=== PATIENT | female | born 1995 | race Caucasian/White ===

== ENCOUNTER 2017-11-21 16:18 | Inpatient (IN) | payer OTHER ==
[2017-11-21] MEDS ORDERED: Ringers Lactate 1,000 ML IV PRN (16:19)
[2017-11-21] MEDS ORDERED: BUTORPHANOL 1 MG/ML INJ IV PRN (16:19)
[2017-11-21] MEDS ORDERED: PROMETHAZINE 25 MG/ML VIAL IM PRN (16:19)
[2017-11-21] MEDS ORDERED: miSOPROStol 100 MCG TAB ONE (16:32)
[2017-11-21 16:46] LABS: RPR Titer ND
[2017-11-21 16:50] LABS: Urine Appearance CLEAR; Urine Bilirubin NEGATIVE (NEG); Urine Blood NEGATIVE (NEG); Urine Color YELLOW; Urine Glucose NEGATIVE (NEG); Urine Protein NEGATIVE (NEG); Urine Specific Gravity 1.025 (1.005-1.030)
[2017-11-21 16:52] LABS: Urine Microscopic Reflex ORDER UMIC
[2017-11-21 16:54] LABS: Absolute Lymphocytes (CBC) 1.3 K/uL (0.7-4.9); Absolute Monocytes 0.7 K/uL (0.1-1.3); Absolute Neutrophil 5.8 K/uL (1.8-8.0); Basophils % 0.3 % (0-1.3); Eosinophils % 0.4 % (0-4.4); Hematocrit 35.4 % (36.0-45.0); Lymphocytes % 17.1 % (15.3-44.8); MCH 30.3 pg (27.0-35.0); MCV 88.6 fL (80-100); MPV 10.5 fL (7.6-11.3); Monocytes % 9.1 % (3.3-12.3); RBC Red Blood Cell Count 3.99 M/uL (3.86-4.86)
[2017-11-21] MEDS ORDERED: Ringers Lactate 1,000 ML IV SCH (17:00)
[2017-11-21] MEDS ORDERED: miSOPROStol 100 MCG TAB PO ONE (17:00)
[2017-11-21 17:18] VITALS: BMI 40.3
[2017-11-21 17:18] LABS: Urine Bacteria 20-50 /HPF (<20); Urine Culture Reflex Order REFLEXED; Urine RBC <5 /HPF (NONE SEEN)
--- NOTE | 2017-11-21 21:16 | PREOPHP ---
Date of Admission: 11/21/2017 A 22-year-old primigravida, 39 weeks 5 days for Cytotec induction. This has been thoroughly discusse d with the patient and her family on several occasions. She knows because she has an unfavorable cer vix that the chance for section is higher, but she does not wish to wait until next week, an d then when she would be passed 40 weeks, use Cytotec at that point. FHTs normal, reactive. Vital s igns are stable. We will insert 50 mcg of Cytotec intravaginally and then switch to p.o. administrat ion every 6 hours, how many doses to be used depends upon the response. The patient knows we can go up to 6 doses if we need to, that would be 36 hours of Cytotec. We will make a more informed decisio n after we see how she responds to the first couple of doses. Full admission and labor talk given. DAVID/KATHERIN Voice ID: [id number]
[2017-11-21] MEDS ORDERED: ZOLPIDEM TARTRATE 5 MG TABLET PO PRN (21:58)
[2017-11-22] MEDS ORDERED: ROPIVACAINE HCL 100 ML IV PRN (04:09)
--- NOTE | 2017-11-22 04:11 | PN ---
Baby looks good on the monitor. She is cristina every 3-4 minutes. There has been no more signif icant bleeding. Baby is well applied to the cervix. I do not think we are dealing with an abruption it looks like a bloody show that has now basically stopped and patient is getting to more active lab or pattern. DAVID/KATHERIN Voice ID: [id number] Report ID: [id number]
[2017-11-22] MEDS ORDERED: ROPIVACAINE HCL 0.2% 20ML AMP IV ONE (04:21)
[2017-11-22] MEDS ORDERED: FENTANYL CITR 100 MCG/2 ML IV ONE (05:04)
[2017-11-22] MEDS ORDERED: FENTANYL CITR 100 MCG/2 ML ONE (05:11)
[2017-11-22] MEDS ORDERED: OXYTOCIN/LR 20 UNIT/1,000 ML BAG IV SCH ×2 (07:00→12:00)
[2017-11-22] MEDS ORDERED: METHYLERGONOVINE 0.2MG/ML AMP IM ONE (11:12)
[2017-11-22] MEDS ORDERED: CARBOPROST TROME 250 MCG/ML IM ONE (11:12)
[2017-11-22] MEDS ORDERED: LIDOCAINE 2% INJ, 20 mL 20 ML ONE (11:30)
--- NOTE | 2017-11-22 11:41 | PN ---
The patient has now progressed to about 5 to 5.5 cm. She has a slight amount of edema on the anterio r cervical lip. I think the baby is occiput posterior. She will start doing pelvic rocks. She has had her epidural and is quite comfortable at this time. The Pitocin 2 milliunits has been started. Hopefully, we will get more rapid progress from this point forward. DAVID/KATHERIN Voice ID: [id number] Report ID: [id number]
[2017-11-22] MEDS ORDERED: CARBOPROST TROME 250 MCG/ML IM PRN (11:54)
[2017-11-22] MEDS ORDERED: BISACODYL 10 MG RECTAL SUPP RECT PRN (11:54)
[2017-11-22] MEDS ORDERED: Oxycodone HCl/Acetaminophen 1 TAB TAB PO PRN (11:54)
[2017-11-22] MEDS ORDERED: DIPHENHYDRAMINE 25 MG TAB/CAP PO PRN (11:54)
[2017-11-22] MEDS ORDERED: ACETAMINOPHEN 500 MG TAB PO PRN (11:54)
[2017-11-22] MEDS ORDERED: DOCUSATE NA/SENNA CONC 1 TAB PO PRN (11:54)
[2017-11-22] MEDS: IBUPROFEN 200 MG TAB PO PRN (13:00)
[2017-11-22] MEDS ORDERED: ACETAMINOPHEN 325 MG TABLET ONE (16:23)
[2017-11-22] MEDS: Oxycodone HCl/Acetaminophen 1 TAB TAB PO PRN (17:00)
[2017-11-22 22:24] LABS: RPR (Rapid Plasma Reagin) NON-REACT (NON-REACT)
--- NOTE | 2017-11-22 23:23 | OP ---
Hospital Course: A 22-year-old, primigravida, 39 weeks and 5 days when Cytotec administered, and 39 weeks and 6 days at the time of delivery. The patient had a bloody show last night. Noted to be 2-2 .5 cm. Rupture of membranes, clear fluid. No suspicion of abruption. The patient progressed well, at 4.5 cm, had epidural anesthesia. Second stage of approximately 25 minutes, spontaneous vaginal de livery. Mild shoulder dystocia. Flexion of the legs. Minimal suprapubic pressure applied. An nancy mated 8-pound female, Apgars 9 and 9. Midline second-degree laceration repaired with 2-0 chromic. O ne vertical laceration just below the clitoris, 1 qaeptu-px-huisk stitch, 2-0 chromic. Fadi ovalle of the placenta, which was inspected and noted to be intact and normal. Mild uterine hypertonus . Hemabate given IM. Estimated blood loss 450, possibly 500 cc. The patient tolerated all procedur es well. Final Diagnoses: Intrauterine gestation, 39 weeks and 5 days with Cytotec cervical ripening, vaginal delivery at 39 weeks and 6 days, epidural anesthesia, and mild uterine hypotonus. DAVID/KATHERIN Voice ID: [id number] Report ID: [id number]
[2017-11-23] MEDS: Oxycodone HCl/Acetaminophen 1 TAB TAB PO PRN (01:56)
[2017-11-23] MEDS ORDERED: MEASLES,MUMPS,RUBELLA VAC 0.5ML SQVAC ONE (08:24)
[2017-11-23] MEDS ORDERED: Tdap (Diph,Pertuss(Acell),Tet Vac) 0.5 ML SYR IMVAC ONE (08:24)
[2017-11-23] MEDS: IBUPROFEN 200 MG TAB PO PRN (09:25)
--- NOTE | 2017-11-23 12:20 | DS ---
Hospital Course: A 22-year-old, primigravida, 39 weeks 6 days at the time of delivery. Cytotec give n for cervical ripening followed by labor induction with oxytocin, subsequently delivering an estimat ed 8 pounds female. Apgars 9 and 9. Midline second-degree laceration simulating episiotomy and repa ired with 2-0 chromic plus a first-degree laceration just below the clitoris, 1 ptmdxn-mk-csraa stitc h 2-0 chromic. Schultze delivery of the placenta, which was inspected and noted to be intact and nor mal. Mild uterine hypertonus Hemabate IM 1 time. Estimated blood loss 450-500 cc. Rh positive, imm une to Rubella. Negative beta-strep screen. afebrile, ambulating and voiding. Lochia is normal. No post epidural problems. Will be dismissed later today to report back to my office in 6 weeks for followup, to report any temperature elevation of 100 degrees or greater, severe pain, heavy bleeding, or any other type of abnormalities. Dismissed with tramadol for analgesia, although she m ay elect to take Motrin instead. She has not had her Tdap immunization during the , and aga in offered a Tdap. Final Diagnoses: Intrauterine gestation, 39 weeks 6 days at delivery. Cytotec for cervical ripening . Labor induction. Vaginal delivery. Mild uterine hypotonus. Epidural anesthesia. Tdap offered. DAVID/KATHERIN Voice ID: [id number] Report ID: [id number]
[2017-11-23 12:25] VITALS: BP 112/55; TEMP 98.2
[2017-11-25 20:59] LABS: HBsAG Nonreactive (Nonreactive)
== END 2017-11-23 14:30 | disposition home or self-care (01) | DRG 775 ==
LOC: 2ND-WC 16:18
PROVIDERS: ADMIT Specialist; ATTEND Specialist
PROC: 10907ZC Drainage of Amniotic Fluid, Therapeutic from Products of Conception, Via Natural or Artificial Opening (ICD-10-PCS; principal; 2017-11-21)
PROC: 3E0P7VZ Introduction of Hormone into Female Reproductive, Via Natural or Artificial Opening (ICD-10-PCS; 2017-11-21)
PROC: 10E0XZZ Delivery of Products of Conception, External Approach (ICD-10-PCS; 2017-11-22)
PROC: 0KQM0ZZ Repair Perineum Muscle, Open Approach (ICD-10-PCS; 2017-11-22)
PROC: 3E033VJ Introduction of Other Hormone into Peripheral Vein, Percutaneous Approach (ICD-10-PCS; 2017-11-22)
DX: O70.1 Second degree perineal laceration during delivery (principal); Z37.0 Single live birth; O62.2 Other uterine inertia; O66.0 Obstructed labor due to shoulder dystocia; Z3A.39 39 weeks gestation of pregnancy; Z23 Encounter for immunization
CPT/HCPCS: 36415; 81003; 81015; 85025; 86592; 86901; 87086; 87088; 87340; 90707; 90715; J0595; J2210; J2550; J2590; J2795; J3010

== ENCOUNTER 2019-02-12 03:19 | Emergency (ER) | payer BC, OTHER ==
--- OUTSIDE RECORDS SUMMARY | 2019-02-12 03:22 | XMS REPORT ---
:1995 [facility] [address] [place] [address] [address] [place] [address] Care Team Providers Name Role Phone Unavailable Unavailable Unavailable Problems This patient has no known problems. Allergies, Adverse Reactions, Alerts This patient has no known allergies or adverse reactions. Medications This patient has no known medications.
--- NOTE | 2019-02-12 04:01 | ER ---
Nurse's Notes [facility] Name: Yadi Alex Age: 24 yrs Sex: Female : 1995 Arrival Date: 02/12/2019 Time: 03:20 Bed 7 Private MD: Diagnosis: Laceration without foreign body of unspecified finger without damage to nail Presentation: 02/12 03:30 Presenting complaint: Patient states: States she was cutting fabric with a fabric ea cutter and accidently rolled over her right pointer finger. Transition of care: patient was not received from another setting of care. Onset of symptoms was February 12, 2019. Risk Assessment: Do you want to hurt yourself or someone else? Patient reports no desire to harm self or others. Initial Sepsis Screen: Does the patient meet any 2 criteria? No. Patient's initial sepsis screen is negative. Does the patient have a suspected source of infection? No. Patient's initial sepsis screen is negative. Care prior to arrival: pt held pressure to stop the bleeding. 03:30 Method Of Arrival: Ambulatory ea 03:30 Acuity: MAYNOR 4 ea Historical: - Allergies: 03:56 NKDA; ea - Home Meds: 03:56 None [Active]; ea - PMHx: 03:56 None; ea - PSHx: 03:56 None; ea - Immunization history:: Adult Immunizations up to date. - Social history:: Smoking status: Patient/guardian denies using tobacco. - Ebola Screening: : No symptoms or risks identified at this time. Screenin:30 Abuse screen: Denies threats or abuse. Nutritional screening: No deficits noted. ea Tuberculosis screening: No symptoms or risk factors identified. Fall Risk None identified. Assessment: 03:30 General: Appears in no apparent distress. Behavior is calm, cooperative, appropriate ea for age. Pain: Complains of pain in palmar aspect of distal phalanx of right index finger Pain currently is 5 out of 10 on a pain scale. Neuro: Level of Consciousness is awake, alert, obeys commands, Oriented to person, place, time, situation. Cardiovascular: Patient's skin is warm and dry. Respiratory: Airway is patent Respiratory effort is even, unlabored, Respiratory pattern is regular, symmetrical. Derm: Skin is pink, warm \T\ dry. Injury Description: Laceration sustained to palmar aspect of distal phalanx of right index finger is clean, superficial, 0.5 to 2.5 cm long, not bleeding, was sustained 1-2 hours ago. no active bleeding noted at this time. A dressing was applied. 03:38 Reassessment: Patient and/or family updated on plan of care and expected duration. Pain ea level reassessed. Patient is alert, oriented x 3, equal unlabored respirations, skin warm/dry/pink. right pointer finger lac cleansed, steri strips placed over area, pt tolerated well. 04:04 Reassessment: Patient and/or family updated on plan of care and expected duration. Pain ea level reassessed. Patient is alert, oriented x 3, equal unlabored respirations, skin warm/dry/pink. Discharge instruction given to patient, verbalized the understanding of instruction, pt left ED ambulatory accompanied by family. Vital Signs: 03:30 BP 129 / 57; Pulse 78; Resp 18; Temp 97.6; Pulse Ox 100% ; Weight 86.18 kg; Height 5 ea ft. 8 in. (172.72 cm); Pain 7/10; 03:30 Body Mass Index 28.89 (86.18 kg, 172.72 cm) ea ED Course: 03:20 Patient arrived in ED. cl3 03:23 Ruperto Mckinney MD is Attending Physician. tw4 03:30 Arm band placed on right wrist. Patient placed in an exam room, on a stretcher, on ea pulse oximetry. 03:30 Patient has correct armband on for positive identification. Bed in low position. Call ea light in reach. 03:55 Triage completed. ea 03:59 No provider procedures requiring assistance completed. Patient did not have IV access ea during this emergency room visit. 04:04 Judy Hunter RN is Primary Nurse. ea Administered Medications: No medications were administered Outcome: 04:01 Discharge ordered by . tw4 04:04 Discharged to home ambulatory. ea 04:04 Condition: stable 04:04 Discharge instructions given to patient. 04:05 Patient left the ED. ea Signatures: Judy Hunter RN RN ea Wadley, Terrence, MD MD tw4 Tuan Hull cl3
--- NOTE | 2019-02-12 04:02 | EDPHYS ---
Physician Documentation [facility] Name: Yadi Alex Age: 24 yrs Sex: Female : 1995 Arrival Date: 02/12/2019 Time: 03:20 Bed 7 Private MD: ED Physician Ruperto Mckinney HPI: 02/12 06:56 This 24 yrs old Female presents to ER via Ambulatory with complaints of tw4 Laceration To Finger. 06:56 The patient or guardian reports a laceration, clean, 3 cm(s). The complaints affect the tw4 palmar aspect of distal phalanx of right index finger. Context: The problem was sustained at home, resulted from cut with knife. Onset: The symptoms/episode began/occurred today. Modifying factors: The symptoms are alleviated by nothing, the symptoms are aggravated by nothing. Severity of symptoms: At their worst the symptoms were mild, in the emergency department the symptoms are unchanged. The patient has not experienced similar symptoms in the past. Historical: - Allergies: 03:56 NKDA; ea - Home Meds: 03:56 None [Active]; ea - PMHx: 03:56 None; ea - PSHx: 03:56 None; ea - Immunization history:: Adult Immunizations up to date. - Social history:: Smoking status: Patient/guardian denies using tobacco. - Ebola Screening: : No symptoms or risks identified at this time. ROS: 06:56 Constitutional: Negative for fever, chills, and weight loss, Eyes: Negative for injury, tw4 pain, redness, and discharge, ENT: Negative for injury, pain, and discharge, Cardiovascular: Negative for chest pain, palpitations, and edema, Respiratory: Negative for shortness of breath, cough, wheezing, and pleuritic chest pain, Abdomen/GI: Negative for abdominal pain, nausea, vomiting, diarrhea, and constipation. 06:56 MS/extremity: Positive for injury or acute deformity, laceration, Negative for abrasion, bite, contusion, decreased range of motion, deformity. Exam: 06:56 Constitutional: This is a well developed, well nourished patient who is awake, alert, tw4 and in no acute distress. Head/Face: Normocephalic, atraumatic. 06:56 Musculoskeletal/extremity: Extremities: noted in the palmar aspect of distal phalanx of right index finger: laceration. Vital Signs: 03:30 BP 129 / 57; Pulse 78; Resp 18; Temp 97.6; Pulse Ox 100% ; Weight 86.18 kg; Height 5 ea ft. 8 in. (172.72 cm); Pain 7/10; 03:30 Body Mass Index 28.89 (86.18 kg, 172.72 cm) ea Laceration: 06:59 Wound Repair of 2cm ( 0.8in ) subcutaneous laceration to palmar aspect of distal tw4 phalanx of right index finger. Linear shaped.. Distal neuro/vascular/tendon intact. Skin closed with 1-0 steri stripes using simple sutures and sterile technique. Dressed with bandaid. Patient tolerated well. MDM: 03:36 Patient medically screened. tw4 06:59 Data reviewed: vital signs, nurses notes. Data interpreted: Pulse oximetry: is not tw4 applicable for this patient encounter. Counseling: I had a detailed discussion with the patient and/or guardian regarding: the historical points, exam findings, and any diagnostic results supporting the discharge/admit diagnosis. Special discussion: I discussed with the patient/guardian in detail that at this point there is no indication for admission to the hospital. It is understood, however, that if the symptoms persist or worsen the patient needs to return immediately for re-evaluation. Administered Medications: No medications were administered Disposition: 02/12/19 04:01 Discharged to Home. Impression: Laceration without foreign body of unspecified finger without damage to nail. - Condition is Stable. - Discharge Instructions: Laceration Care, Adult. - Medication Reconciliation Form, Thank You Letter, Antibiotic Education, Prescription Opioid Use form. - Follow up: Private Physician; When: Upon discharge from the Emergency Department; Reason: Recheck today's complaints, Continuance of care. - Problem is new. - Symptoms have improved. Signatures: Judy Hunter RN RN ea Wadley, Terrence, MD MD tw4 Corrections: (The following items were deleted from the chart) 04:05 04:01 02/12/2019 04:01 Discharged to Home. Impression: Laceration without foreign body ea of unspecified finger without damage to nail. Condition is Stable. Forms are Medication Reconciliation Form, Thank You Letter, Antibiotic Education, Prescription Opioid Use. Follow up: Private Physician; When: Upon discharge from the Emergency Department; Reason: Recheck today's complaints, Continuance of care. Problem is new. Symptoms have improved. tw4
[2019-02-12 06:31] VITALS: BP 129/57; TEMP 97.6; O2SAT 100
== END 2019-02-12 04:05 | disposition home or self-care (01) ==
LOC: ER 03:19
PROC: 0JQJ0ZZ Repair Right Hand Subcutaneous Tissue and Fascia, Open Approach (ICD-10-PCS; principal; 2019-02-12)
DX: S61.210A Laceration without foreign body of right index finger without damage to nail, initial encounter (principal); W26.0XXA Contact with knife, initial encounter; Y93.9 Activity, unspecified; Y92.009 Unspecified place in unspecified non-institutional (private) residence as the place of occurrence of the external cause
CPT/HCPCS: 99283

== ENCOUNTER 2021-05-07 21:37 | Emergency (ER) | payer BC, SELFPAY ==
--- OUTSIDE RECORDS SUMMARY | 2021-05-07 21:39 | XMS REPORT | Continuity of Care Document ---
:[address] [facility] t Address [address] [place] [address] Care Team Providers Name Role Phone Prudence REYES Primary Care Physician Unavailable Alexsandra LARRY Attending Clinician Unavailable Alexsandra Larry NP Attending Clinician Johana SIMON, N Attending Clinician Rodolfo VAUGHN Attending Clinician Unavailable Payers Payer Name Policy Type Policy Number Effective Date Expiration Date S ource Problems Condition Condition Condition Status Onset Resolution Last Treating Co mments Source Name Details Category Date Date Treatment Clinician Date BMI BMI Disease Active Univers 40.0-44.9, 40.0-44.9, 8-24 it y of adult adult 00:00: [address] Cyst of Cyst of Disease Active Univers ovary, ovary, 7-19 ity of left left 00:00: [address] Screening Screening Disease Active Uni vers examinatio examinatio 2-12 it y of n for STD n [place] STD [place] (sexually 00 Medi eileen transmitte transmitte Br anch d disease) d disease) Obesity Obesity Disease Active Univers (BMI (BMI 2-12 ity of 30-39.9) 30-39.9) 00:00: [address] [place] Disease Active Univers contracept contracept 2-12 it y of ion ion 00:00: [address] Pap smear Pap smear Disease Active Overview: Univers abnormalit abnormalit 1-29 Formattin ity of y of y of 00:00: g of this [place] cervix cervix 00 note Medical with ASCUS with ASCUS might be Branch favoring favoring different benign benign from the original. See scanned records, will need repeat pap pp Morbid Morbid Disease Active Univers obesity obesity 12-03 ity of 00:00: 00 Medical Branch Allergies, Adverse Reactions, Alerts Allergy Allergy Status Severity Reaction(s) Onset Inactive Treating Comm ents Source Name Type Date Date Clinician Peanut Propensi Active Hives Univers ty to 12-02 ity of adverse 00:00: [place] reaction 00 Medical s Branch PEANUT DRUG Active Hives Univers INGREDI 12-02 ity of 00:00: [place] 00 Medical Branch Social History Social Habit Start Date Stop Date Quantity Comments Source Exposure to Unable to assess Univers ity of SARS-CoV-2 [place] [facility] (event) Branch Alcohol intake 2021-03-10 2021-03-10 Current drinker Unive rsity of 00:00:00 00:00:00 of alcohol [place] [facility] (finding) Branch History SDOH 2019-10-21 2019-10-21 99 University o f Alcohol Frequency 00:00:00 00:00:00 [place] [facility] History SDOH 2019-10-21 2019-10-21 99 University o f Alcohol Std 00:00:00 00:00:00 [place] [facility] Drinks Branch History SDOH 2019-10-21 2019-10-21 99 University o f Alcohol Binge 00:00:00 00:00:00 [place] [facility] Alcohol Comment 2019-10-21 2019-10-21 social Universit y of 00:00:00 00:00:00 [facility] Tobacco use and 2012-08-24 2012-08-24 Never used Universit y of exposure 00:00:00 00:00:00 [facility] Branch Sex Ass[birth year] At [birth year] Universit y of 00:00:00 00:00:00 [facility] Branch Smoking Status Start Date Stop Date Source Never smoker [facility] Branch Medications Ordered Filled Start Stop Current Ordering Indication Dosage Frequency Signature Comments Components Source Medication Medication Date Date Medication? Clinician (SIG) Name Name medroxyPROG 2020-03- Yes [id number] 150mg Univers ESTERone 2-15 11-16 ity of (DEPO-PROVE 19:45: 19:44 [place] RA) 00 :00 Medical injection Branch 150 mg medroxyPROG 2020-03 Yes [id number] 150mg 150 mg, Univers ESTERone 2-15 11-16 Intramuscu ity of (DEPO-PROVE 19:45: 19:44 [facility], [place] RA) 00 :00 [id number], Medical injection 4 doses, Branch 150 mg First dose on Mon02/24/21 at 1345, Last dose on Mon11/03/21 at 1345, Routine medroxyPROG 2020-03- Yes [id number] 150mg Univers ESTERone 2-15 11-16 ity of (DEPO-PROVE 19:45: 19:44 [place] RA) 00 :00 Medical injection Branch 150 mg medroxyPROG 2020-03- Yes [id number] 150mg 150 mg, Univers ESTERone 2-15 11-16 Intramuscu ity of (DEPO-PROVE 19:45: 19:44 [facility], [place] RA) 00 :00 [id number], Medical injection 4 doses, Branch 150 mg First dose on Mon02/24/21 at 1345, Last dose on Mon11/03/21 at 1345, Routine medroxyPROG 2020-03- Yes [id number] 150mg Univers ESTERone 2-15 11-16 ity of (DEPO-PROVE 19:45: 19:44 [facility]) 00 :00 Medical injection Branch 150 mg Immunizations Ordered Filled Immunization Date Status Comments [facility] e Immunization Name Name Influenza Virus 2017-12-21 Completed Universit y of Vaccine Quad .5 mL 00:00:00 [facility] IM 6+ MO Branch Influenza Virus 2017-12-21 Completed Universit y of Vaccine Quad .5 mL 00:00:00 [place] [facility] IM 6+ MO Branch Influenza Virus 2017-12-21 Completed Universit y of Vaccine Quad .5 mL 00:00:00 [place] [facility] IM 6+ MO Branch Influenza Virus 2017-04-04 Completed Universit y of Vaccine Quad IM 3+ 00:00:00 [facility] Influenza Virus 2017-04-04 Completed Universit y of Vaccine Quad IM 3+ 00:00:00 [facility] Influenza Virus 2017-04-04 Completed Universit y of Vaccine Quad IM 3+ 00:00:00 [facility] Td 2008-11-02 Completed University 00:00:00 [facility] Td 2008-11-02 Completed University 00:00:00 [facility] Td 2008-11-02 Completed University of 00:00:00 [facility] Vital Signs Vital Name Observation Time Observation Value Comments Source Systolic blood 2021-03-10 20:20:00 129 mm[Hg] Univer sity of pressure [facility] Diastolic blood 2021-03-10 20:20:00 77 mm[Hg] Unive rsity of pressure [facility] Heart rate 2021-03-10 20:20:00 18 /min Universi ty of [facility] Body temperature 2021-03-10 20:20:00 37.5 Dania [facility] ersity of [facility] Respiratory rate 2021-03-10 20:20:00 18 /min [facility] [place] [facility] Body weight 2021-03-10 20:20:00 106.595 kg Universi ty of [facility] BMI 2021-03-10 20:20:00 40.34 kg/m2 [facility] Oxygen saturation in 2021-03-10 20:20:00 99 /min [facility] Arterial blood by [facility] [place] [facility] Pulse oximetry Branch Systolic blood 2021-02-24 19:32:00 123 mm[Hg] Univer sity of pressure [facility] Diastolic blood 2021-02-24 19:32:00 77 mm[Hg] Unive rsity of pressure [facility] Heart rate 2021-02-24 19:32:00 85 /min Universi ty of [facility] Body temperature 2021-02-24 19:32:00 36.56 Dania [facility] Respiratory rate 2021-02-24 19:32:00 16 /min [facility] [place] [facility] Body height 2021-02-24 19:32:00 162.6 cm Universi ty of [facility] Body weight 2021-02-24 19:32:00 106.958 kg Universi ty of [facility] BMI 2021-02-24 19:32:00 40.47 [facility] Procedure Date / Time Performed Performing Clinician Sourc e RAPID INFLUENZA A/B 2021-03-10 20:23:00 Betito Larry [facility] CONSENT/REFUSAL FOR 2021-03-10 20:09:15 Doctor Unassigned, No Un [facility] DIAGNOSIS AND Name Medical Branch TREATMENT POCT TEST 2021-02-24 19:33:00 Yani Vaughn [facility] Encounters Start End Encounter Admission Attending Care Care Encounter Source Date/Time Date/Time Type Type Clinicians Facility Department ID 2021-05-19 2021-05-19 Outpatient R [facility] [id number] Univers 10:00:00 10:00:00 itdean [facility] 2021-03-10 2021-03-10 Emergency X [facility] ERT [id number] Univers 14:24:00 15:24:00 BETITO mitchell [facility] 2021-03-10 2021-03-10 Emergency [facility] [id number] Univers 14:24:00 15:24:00 Betito Alexsandra REVILLO [id number] ity [id number] [address] 2021-02-24 2021-02-24 [facility] [id number] Univers 13:30:00 14:22:15 Visit Yani Reynolds [employer] [id number] it y [facility] [id number] [place] as MATERNAL [id number] Med ical & CHILD [address] [place] [address] 2021-02-24 2021-02-24 Outpatient R JOHANA [facility] [id number] Univers 13:30:00 14:22:15 YANI mitchell [facility] Results Test Description Test Time Test Comments Results Result Comments Source POCT TEST 2021-02-24 19:37:00 Test Item Value Reference Range Interpretation Comme nts POCT PREG (test code = 1605) Negative On board controls acceptable with C Line (test code = 3574) Yes POCT PREG LOT # (test code = 3575) POCT PREG TEST DATE (test code = 3576) [id number] 19:37:00 Test Item Value Reference Range Interpretation Comments POCT PREG (test code = 1605) Negative On board controls acceptable with C Yes Line (test code = 3574) POCT PREG LOT # (test code = 3575) POCT PREG TEST DATE (test code = 3576) [facility]
[2021-05-07] MEDS ORDERED: ONDANSETRON 4 MG/2 ML VIAL ONE (22:10)
[2021-05-07] MEDS ORDERED: MORPHINE 4 MG/ML SYR ONE (22:10)
[2021-05-07 22:15] LABS: Urine Blood Trace-intact (Negative); Urine Glucose Negative (Negative); Urine Protein Negative (Negative); Urine Specific Gravity <=1.005 (1.005-1.030); Urine pH 5.5 (5.0-7.0)
[2021-05-07 22:20] LABS: Absolute Lymphocytes (CBC) 1.4 K/uL (0.7-4.9); Hematocrit 38.9 % (36.0-45.0); Lymphocytes % 22.8 % (15.3-44.8); MPV 9.4 fL (7.6-11.3)
[2021-05-07 22:33] LABS: Protime INR 0.96
[2021-05-07 22:36] LABS: Bilirubin Direct 0.1 mg/dL (0-0.2); Bilirubin Total 0.4 mg/dL (0.2-1.0); Potassium 3.4 mmol/L (3.5-5.1); Protein, Total 7.7 g/dL (6.4-8.2)
[2021-05-08] MEDS ORDERED: ONDANSETRON 4 MG/2 ML VIAL ONE (00:17)
[2021-05-08] MEDS ORDERED: MORPHINE 4 MG/ML SYR ONE (00:17)
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
[2021-05-08 01:57] VITALS: TEMP 98; O2SAT 100
[2021-05-08 02:01] VITALS: BP 136/82
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
== END 2021-05-08 01:33 | disposition home or self-care (01) ==
LOC: ER 21:37
PROC: 2W3QX1Z Immobilization of Right Lower Leg using Splint (ICD-10-PCS; principal; 2021-05-08)
DX: S93.401A Sprain of unspecified ligament of right ankle, initial encounter (principal); V49.40XA Driver injured in collision with unspecified motor vehicles in traffic accident, initial encounter; Z91.010 Allergy to peanuts
CPT/HCPCS: 36415; 70450; 71260; 72125; 74177; 80048; 80076; 81003; 85025; 85610; 85730; 86850; 86900; 86901; 96374; 96375; 99285; J2405; Q9967